=== PATIENT | female | born 1990 | race Caucasian/White ===

== ENCOUNTER 2021-01-31 12:20 | Outpatient (CLI) | payer OTHER, SELFPAY ==
[2021-01-31 13:14] LABS: Beta HCG Quantitative < 2.39 mIU/ML
== END 2021-01-31 12:21 | disposition home or self-care (01) ==
PROVIDERS: PCP Hospitalist; Visit Provider Obstetrics & Gynecology
DX: N91.2 Amenorrhea, unspecified (principal)
CPT/HCPCS: 36415; 84702

== ENCOUNTER 2021-05-25 17:14 | Observation (INO) | payer OTHER, SELFPAY ==
[2021-05-25 17:47] VITALS: BP 99/65; PULSE 87
[2021-05-25 17:57] VITALS: BMI 29.1
--- NOTE | 2021-05-25 17:57 | OBADM ---
This patient, Charissa Pulido, admitted to the OB room OB Post 117 for observation. Patient/family oriented to hospital policies and general routines including ID bracelet, bed and alarms, visiting hours, pain management, procedures, bathroom and other care routines, personal items, smoking policy, room service/diet, and visiting hours. Patient/Family are encouraged to report perceived risks to care and to ask questions if they do not understand what they are told or what they should do.
[2021-05-25 18:00] VITALS: BP 101/64; PULSE 82
[2021-05-25 18:00] LABS: Add Urine Microscopic? NO; Appearance Urine Clear (Clear); Bilirubin Urine Negative (Negative); Blood Urine Negative (Negative); Color Urine Straw (Yellow); Glucose Urine UA Negative (Negative); Ketones Urine Negative (Negative); Leukocyte Esterase Ur Negative LEU/UL (Negative); Nitrate Urine Negative (Negative); Protein Urine Negative (Negative); Specific Grav Ur 1.008 (1.001-1.035); Urobilinogen Urine Negative mg/dL (<2.0)
--- NOTE | 2021-05-27 13:29 | PM.OBTRLD ---
OB - Triage/Final Diagnosis Visit Information Date of evaluation: 05/25/21 Reason for evaluation: threatened labor Comments/Additional reasons for admission: I have assessed the risk for this patient, Charissa Pulido, and determined that she would benefit from observation care. Evaluation Laboratory results: Laboratory Tests 05/25/21 17:48 Urine Color Straw Urine Appearance Clear Urine pH 6.0 Ur Specific [place] 1.008 Urine Protein Negative Urine Glucose (UA) Negative Urine Ketones Negative Ur Blood (Man) Negative Urine Nitrate Negative Urine Bilirubin Negative Urine Urobilinogen Negative Leukocyte Esterase Rfl Negative
== END 2021-05-25 18:35 | disposition home or self-care (01) ==
PROVIDERS: Admitting Provider Obstetrics & Gynecology; PCP Hospitalist; Visit Provider Student in an Organized Health Care Education/Training Program
DX: O47.02 False labor before 37 completed weeks of gestation, second trimester (principal); Z3A.19 19 weeks gestation of pregnancy
CPT/HCPCS: 81003; G0378; G0379

== ENCOUNTER 2021-07-29 10:46 | Outpatient (CLI) | payer OTHER, SELFPAY ==
--- NOTE | 2021-07-29 | ECG_ITS ---
Measurements Intervals [place] Rate: 75 P: 30 HI: 161 QRS: 12 QRSD: 94 T: 8 QT: 364 QTc: 409 Interpretive Statements SINUS RHYTHM LOW QRS VOLTAGE IN PRECORDIAL LEADS BORDERLINE ECG Electronically Signed On 07-29-2021 11:23:04 CDT by Charli Berry D.O.
== END 2021-07-29 10:47 | disposition home or self-care (01) ==
LOC: ANHCARD 10:48
PROVIDERS: PCP Hospitalist; Visit Provider Obstetrics & Gynecology
DX: R55 Syncope and collapse (principal)
CPT/HCPCS: 93005

== ENCOUNTER 2021-10-12 14:22 | Inpatient (IN) | payer OTHER, SELFPAY ==
[2021-10-12] VITALS (48 sets, daily range): BP systolic 113–151; BP diastolic 58–94; PULSE 96–146; RESP 18; TEMP 36.6; O2SAT 68–100; BMI 35.9
[2021-10-12 15:06] LABS: Basophils Absolute Auto 0.1 K/mm3 (0.0-0.1); Basophils Percent Auto 0.5 % (0.2-1.2); Eosinophils Absolute Auto 0.1 K/mm3 (0-0.3); Eosinophils Percent Auto 0.4 % (0-4.4); Hematocrit 39.8 % (37.0-47.0); Hemoglobin 13.4 g/dL (12.0-15.0); Immature Granulocyte Percent A 4.5 % (0-0.5); Lymphocytes Absolute Auto 2.31 K/mm3 (0.9-3.2); Lymphocytes Percent Auto 17.3 % (18.3-44.2); Mean Corpuscular HGB Conc 33.7 g/dl (32-36); Mean Corpuscular Hemoglobin 29.9 pg (26-34); Mean Corpuscular Volume 88.8 fl (80-100); Mean Platelet Volume 10.4 fl (7.4-10.4); Monocytes Percent Auto 7.4 % (2.6-8.5); Neutrophils Absolute Auto 9.3 K/mm3 (1.3-6.7); Neutrophils Percent Auto 69.9 % (45.5-73.1); Platelet Count Result 229 k/mm3 (150-375); Red Blood Count 4.48 M/mm3 (4.2-5.4); Red Cell Distribution Width 14.1 % (11.5-14.5); White Blood Count 13.4 K/mm3 (4.5-10.0)
--- NOTE | 2021-10-12 15:31 | WPDANESEPP ---
Anes - Eval Pre Procedure Procedure: Labor Epidural Date/Time: 10/12/21 15:31 Surgeon: Brian Preop Diagnosis: Labor Pain Pre Op Diagnosis: Leaking-SROM Patient Data Age: 30 Gender: F Height: Weight: Last Vital Signs Pulse 115 H 10/12/21 15:28 BP 120/71 10/12/21 15:28 Pulse Ox 100 10/12/21 15:28 Allergies Allergy/AdvReac Type Severity Reaction Status Date / Time Penicillins Allergy Unknown throat Verified 09/25/21 14:37 swells clindamycin AdvReac Unknown C-diff Verified 09/25/21 14:37 but I don't want to take it again Home Medications Medication Instructions Recorded Confirmed Type enoxaparin 100 mg/mL subcutaneous 100 mg subcut DAILY 05/25/21 05/25/21 History syringe (Lovenox) sertraline 50 mg tablet 50 mg PO DAILY 05/25/21 05/25/21 History prenat.vits,gómez,tun-jqvu-audze 1 tablet PO HS 09/25/21 09/25/21 History Laboratory Tests 10/12/21 10/12/21 14:58 14:58 WBC 13.4 K/mm3 H K/mm3 (4.5-10.0) RBC 4.48 M/mm3 M/mm3 (4.2-5.4) Hgb 13.4 g/dL g/dL (12.0-15.0) Hct 39.8 % % (37.0-47.0) MCV 88.8 fl fl (80-100) MCH 29.9 pg pg (26-34) MCHC 33.7 g/dl g/dl (32-36) RDW 14.1 % % (11.5-14.5) Plt Count 229 k/mm3 k/mm3 (150-375) MPV 10.4 fl fl (7.4-10.4) Immature Gran % (Auto) 4.5 % H % (0-0.5) Neut % (Auto) 69.9 % % (45.5-73.1) Lymph % (Auto) 17.3 % L % (18.3-44.2) [place] % (Auto) 7.4 % % (2.6-8.5) Eos % (Auto) 0.4 % % (0-4.4) Baso % (Auto) 0.5 % % (0.2-1.2) Lymph # (Auto) 2.31 K/mm3 K/mm3 (0.9-3.2) [place] # (Auto) 1.0 K/mm3 H K/mm3 (0.1-0.6) Eos # (Auto) 0.1 K/mm3 K/mm3 (0-0.3) Baso # (Auto) 0.1 K/mm3 K/mm3 (0.0-0.1) Abs Immat Gran (auto) 0.60 K/mm3 H K/mm3 (0.00-0.031) Absolute Neuts (auto) 9.3 K/mm3 H K/mm3 (1.3-6.7) Absolute Nucleated RBC 0.0 K/mm3 K/mm3 (0.0-0.012) Nucleated RBC % 0.0 % % (0.0-0.2) RPR Pending : gestational age (DANY 10/17/21, ) Patient hx anesthesia problems: none Family hx anesthesia problems: none Results Review: All pre-operative results and documents have been reviewed as part of the pre-operative evaluation. [facility] Past Medical History Medical History (Updated 10/12/21 @ 15:32 by Estella Boucher CRNA) Anti-phospholipid syndrome Anxiety Family History Family History Grandparent Heart disease Grandparent Heart disease Social History Social History Substance use: never Spiritual care concerns: No Exam Day of Procedure 10/12/21 15:31 Patient weight: normal Heart: regular rate and rhythm Lungs: normal air movement Airway: Mallampati scale class II Neurological: alert and oriented
--- NOTE | 2021-10-12 15:33 | LDADM ---
This patient, Charissa Pulido, was admitted to Labor/Delivery/Recovery 108 on 10/12/21 at 14:22. Plans for labor, pain management and were discussed with patient. Patient/family oriented to hospital policies and general routines including ID bracelet, bed and alarms, visiting hours, pain management, procedures, bathroom and other care routines, personal items, smoking policy, room service/diet and guest tray routines, infant security routines, and visiting hours. Patient/Family are encouraged to report perceived risks to care and to ask questions if they do not understand what they are told or what they should do. See OBIX for further documentation.
[2021-10-12] MEDS: LACTATED RINGERS 1,000 ML 125 ML IV CONT (16:00)
--- NOTE | 2021-10-12 16:14 | PM.IMHP ---
H&P: HPI History of Present Illness Date/Time: 10/12/21 16:14 Chief Complaint: labor at term Narrative: this is a 30-year-old 3 para 2 whose last menstrual period unknown, EDC is 10/17/2021, confirmed by 8 week ultrasound who presents at 39 and half weeks gestation active labor. She has a history of antiphospholipid antibody syndrome and was on Lovenox until recently when she began heparin b.i.d.. She has not taken her heparin for more than 12hours. She also takes Zoloft 50mg for anxiety and is vaccinated for COVID. She is negative for group B strep. She spontaneously ruptured just prior to admission [facility] Past Medical History Medical History Anti-phospholipid syndrome Anxiety Family History Family History Grandparent Heart disease Grandparent Heart disease Social History Social History Smoking status: Never smoker Substance use: never Spiritual care concerns: No Meds Home Medications and Allergies Home Medications Medication Instructions Recorded Confirmed Type enoxaparin 100 mg/mL subcutaneous 100 mg subcut DAILY 05/25/21 10/12/21 History syringe (Lovenox) sertraline 50 mg tablet 50 mg PO DAILY 05/25/21 10/12/21 History prenat.vits,gómez,mvy-zafw-mjuhc 1 tablet PO HS 09/25/21 09/25/21 History Allergies Allergy/AdvReac Type Severity Reaction Status Date / Time Penicillins Allergy Unknown throat Verified 09/25/21 14:37 swells clindamycin AdvReac Unknown C-diff Verified 09/25/21 14:37 but I don't want to take it again Vital Signs Vital Signs - 24 hr 10/12/21 14:46 10/12/21 15:01 10/12/21 15:04 Pulse Rate 104 H 115 H Blood Pressure 123/84 118/76 Pulse Oximetry 100 Oxygen Delivery 10/12/21 15:06 10/12/21 15:10 10/12/21 15:11 Pulse Rate Blood Pressure Pulse Oximetry 100 68 L 85 L Oxygen Delivery 10/12/21 15:13 10/12/21 15:15 10/12/21 15:17 Pulse Rate 111 H Blood Pressure 124/69 Pulse Oximetry 100 100 Oxygen Delivery 10/12/21 15:18 10/12/21 15:21 10/12/21 15:22 Pulse Rate 105 H 112 H Blood Pressure 131/84 131/82 Pulse Oximetry 100 Oxygen Delivery 10/12/21 15:23 10/12/21 15:24 10/12/21 15:26 Pulse Rate 123 H 117 H Blood Pressure 119/74 121/58 L Pulse Oximetry 100 Oxygen Delivery 10/12/21 15:28 10/12/21 15:30 10/12/21 15:33 Pulse Rate 115 H 111 H Blood Pressure 120/71 123/74 Pulse Oximetry 100 100 Oxygen Delivery 10/12/21 15:35 10/12/21 15:38 10/12/21 15:40 Pulse Rate 111 H 115 H Blood Pressure 120/72 113/79 Pulse Oximetry 100 Oxygen Delivery 10/12/21 15:43 10/12/21 15:45 10/12/21 15:50 Pulse Rate 106 H 111 H Blood Pressure 129/75 135/77 Pulse Oximetry 100 Oxygen Delivery 10/12/21 15:55 10/12/21 16:00 10/12/21 16:05 Pulse Rate 119 H 121 H 122 H Blood Pressure 127/79 131/82 125/79 Pulse Oximetry Oxygen Delivery 10/12/21 16:10 10/12/21 15:32 Pulse Rate 119 H Blood Pressure 123/79 Pulse Oximetry Oxygen Delivery Room Air Exam Const: General: cooperative and healthy appearing HENMT: Head: normal to inspection Eyes: General: appearance normal, both eyes and all related structures Cardio: Heart sounds: S1 normal heart sound present and S2 normal heart sound present GI: Inspection: normal to inspection : Speculum Exam - Cervix: normal appearance of the cervix ( cervix rim with clear fluid. FHTs reassuring) H&P: Results Labs Labs: Short CBC 10/12/21 Range/Units 14:58 WBC 13.4 H (4.5-10.0) K/mm3 Hgb 13.4 (12.0-15.0) g/dL Hct 39.8 (37.0-47.0) % Plt Count 229 (150-375) k/mm3 Assessment and Plan Assessment and plan (1) Term : Code(s): Z34.90 - Encounter for supervision of normal pregnanc
[2021-10-12] MEDS: OXYTOCIN 30 UNITS/NS 500 ML 30 UNITS/500 ML BAG IV CONT (17:23)
--- NOTE | 2021-10-12 18:54 | PM.OBPRVD ---
OB - Delivery Note Procedure Delivery date: 10/12/21 Induction method: None Delivery augmentation: Pitocin Delivery monitor: External FHT Route of delivery: Episiotomy description: None Laceration Description: None Quantitative Blood Loss (ml): 159 Anesthesia type: Epidural Disposition: Floor [place] Baby Date of : 10/12/21 Weeks of gestation at delivery: 39 presentation: vertex position: Right Occiput Anterior Placenta delivery description: Spontaneous Cord Vessel Description: 3 Vessels
[2021-10-12] MEDS: OXYTOCIN 30 UNITS/NS 500 ML 30 UNITS/500 ML BAG 125 UNITS IV CONT (19:20)
[2021-10-12] MEDS: ACETAMINOPHEN 500 MG TABLET 1000 MG PO (19:41)
[2021-10-12] MEDS: BENZOCAINE 20% AER SPR (*SP) 56 GM CAN 1 SPRAY TOPICAL (21:06)
[2021-10-12] MEDS: ONDANSETRON INJ 4 MG/2 ML VIAL IV PUSH (21:06)
[2021-10-12] MEDS: WITCH HAZEL 40 PADS 1 PAD TOPICAL (21:12)
--- NOTE | 2021-10-12 21:19 | OBPPTRN ---
Patient transferred to post room #288 via W/C. Support person present. Oriented to unit, room, information board, rooming in, admission packet and security measures. Patient verbalizes understanding.
[2021-10-12] MEDS: METHYLERGONOVINE MALEATE 0.2 MG TABLET PO (22:10)
[2021-10-13] VITALS: BP 118/79; PULSE 85; RESP 18; TEMP 36.5
[2021-10-13] MEDS: ACETAMINOPHEN 325 MG TABLET 650 MG PO ×3 (02:01→16:55)
[2021-10-13 03:50] VITALS: BP 119/79; PULSE 91; RESP 18; TEMP 36.6
--- NOTE | 2021-10-13 04:00 | PC.NURSE ---
On 10/12/21, at 2155, pt called out and said she had felt a gush of blood come out. This RN and charge nurse; Gricelda Fink RN, went and assessed the patient; taking vitals and weighing her pads which came to 325 grams. Despite the patient's fundus being firm at 1 below the umbilicus, she still continued to gush blood with fundal massage. Charge nurse called the patient's OB, Dr. Nilo Anderson and updated him on her condition. Provider ordered Methergine 0.2mg PO x1 which was given at 2210. At 2223- fundus was firm and deviated to the right, I got pt up to the bathroom to empty her bladder. Patient was able to void and pad was weighed and changed, pad weighed 58 grams. 2300- pad weighed 57 grams. 2330- pad was not changed and small bleeding was noted at this time. 0000- pad weighed 40 grams. 0030- patient requested to shower and get cleaned up. 0100- New mert pad applied after shower. 0200- fundus firm at 1 below umbilicus, no trickle of blood with fundal massage, peripad with minimal bleeding. 0340- pt up to the bathroom, small flow noted on the peripad, and new pad applied. One quarter sized clot in the toilet after voiding.
[2021-10-13 05:42] LABS: Hematocrit 33.8 % (37.0-47.0); Hemoglobin 11.2 g/dL (12.0-15.0)
--- NOTE | 2021-10-13 07:12 | P.PNOB_ITS ---
OB - PN: Subj Subjective Date/time seen: 10/13/21 07:12 Patient comments: no complaints and pain well controlled baby status: doing well OB - PN: Obj Data Labs CBC & Chem 7: 10/13/21 05:14 Labs: Laboratory Results - last 24 hr 10/12/21 10/12/21 10/13/21 14:58 14:58 05:14 WBC 13.4 H RBC 4.48 Hgb 13.4 11.2 L Hct 39.8 33.8 L MCV 88.8 MCH 29.9 MCHC 33.7 RDW 14.1 Plt Count 229 MPV 10.4 Immature Gran % (Auto) 4.5 H Neut % (Auto) 69.9 Lymph % (Auto) 17.3 L [place] % (Auto) 7.4 Eos % (Auto) 0.4 Baso % (Auto) 0.5 Lymph # (Auto) 2.31 [place] # (Auto) 1.0 H Eos # (Auto) 0.1 Baso # (Auto) 0.1 Abs Immat Gran (auto) 0.60 H Absolute Neuts (auto) 9.3 H Absolute Nucleated RBC 0.0 Nucleated RBC % 0.0 Blood Type B Positive Antibody Screen Negative OB - PN A/P Assessment and Plan (1) Anti-phospholipid antibody syndrome: Code(s): D68.61 - Antiphospholipid syndrome Status: Acute (2) Term : Code(s): Z34.90 - Encounter for supervision of normal , unspecified, unspecified trimester Status: Acute Plan day: 1 Plan: routine care Time Spent With Patient Time: Total time spent is greater than 50% in coordination of care (as documented) at patient's floor/unit and/or counseling patient: Time with patient: less than 15 minutes
[2021-10-13 08:00] VITALS: BP 113/75; PULSE 96; RESP 18; TEMP 36.8; O2SAT 100
[2021-10-13] MEDS: DOCUSATE SODIUM 100 MG CAPSULE PO ×2 (08:10→16:56)
[2021-10-13] MEDS: MULTIVIT/MIN/PREN/FOL AC/IRON TABLET 1 TAB PO (08:10)
[2021-10-13] MEDS: ENOXAPARIN 100 MG/ML SYRINGE SUB-Q (09:51)
--- NOTE | 2021-10-13 11:45 | PC.NURSE ---
[id number] Introductions were made, then consulted with patient to assess needs related to . Mother led the conversation with her?plans to feed?her infant and the?experience so far and describes the feeding as a pulling when infant is nursing. Dad describes the jaw movement as jacking it up and the rocking motion RN describes agrees with what dad notices. Mother denies and discomfort with . Mother is feeding appropriately for growth of infant and understands stimulating infant to eat if needed. has had appropriate feedings in the last 24 hours meets the outcomes for weight, output and jaundice at this time. Mother states she is confident to continue effectively her at home. Resources provided for inpatient and outpatient services using a resource guide and mom/baby guide. Mother voiced understanding of information and will call if there is a request for assistance. Reported to primary RN.
[2021-10-13 12:01] LABS: Rapid Plasma Reagin Non-Reactive (NonReactive)
[2021-10-13 13:40] VITALS: BP 104/64; PULSE 94; RESP 18; TEMP 36.2; O2SAT 99
--- NOTE | 2021-10-13 15:30 | PC.NURSE ---
Pt used call light at 15:30 and stated she passed a clot in bathroom about an hour ago. When i entered room to assess she stated she has already flushed clot down the toilet. I told pt to notify RN as soon as it happens and to let us see clot>
--- NOTE | 2021-10-13 15:31 | PC.NURSE ---
[id number] Consulted with patient to assess needs related to . Mother led conversation with her experience with feeding baby so far. Mother works well with her infant with encouragement and has infant latched to the right breast using a modified football position. Detached due to mother stating it was a little pinchy . Nipple was slightly misshaped. Reviewed working with , breast, nipples and how to protect the nipples with an optimal deep latch, good positioning, and good hand washing. Encouraged understanding the benefits of skin to skin, responding to feeding cues, frequencies of feeding 8-12 times in 24 hours (approximately 2-3 hours), duration of feedings, milk production, intake/output feeding sheet and signs of adequate intake encouraging swallowing at the breast. Reviewed positioning and alignment, supporting breast, off-centered (asymmetrical latch) and leading with the chin with big open wide gape. latched optimally to the left breast in football position. Education given to mother of how to visualize and hear her baby's good suck/swallow ratios. was able to maintain latch without discomfort to mother. Nipple care reviewed with optimal latch and good positioning. Resources used to facilitate learning were used from the visual handout and mom/baby guide. Mother voiced understanding of the education shared, calling for assistance if the infant does not latch or if there is discomfort with . Reported to the primary RN.
[2021-10-13 17:05] VITALS: BP 101/72; PULSE 108; RESP 16; TEMP 36.1; O2SAT 99
[2021-10-13] MEDS: LANOLIN (LANSINOH) 7.5 GM CREAM 1 APPLIC TOPICAL (17:16)
--- NOTE | 2021-10-13 17:45 | PC.NURSE ---
Pt used call light to Let RN know she passed a clot. Myself assessed the clot that was on the pad, it looked to be the size of a quarter. I told pt to continue notifying the nurse when she passes clots. Pt understands at this time.
[2021-10-13 19:30] VITALS: BP 108/70; PULSE 100; RESP 18; TEMP 36.6
[2021-10-13] MEDS: IBUPROFEN 600 MG TABLET PO (23:07)
[2021-10-14] MEDS: ACETAMINOPHEN 325 MG TABLET 650 MG PO (04:53)
--- NOTE | 2021-10-14 06:48 | P.DS_ITS ---
DS: Admitting Diagnosis Discharge Date 10/14/2021 Admitting Diagnosis term / anti phospholipid antibody DS: Discharge Diagnosis Discharge Diagnosis (1) Anti-phospholipid antibody syndrome: Code(s): D68.61 - Antiphospholipid syndrome Status: Acute (2) Term : Code(s): Z34.90 - Encounter for supervision of normal , unspecified, unspecified trimester Status: Acute DS: Summary Hospital Course Reason for hospitalization: active labor at term Hospital Course: this is a 30-year-old multiparous patient admitted at term in active labor. Her been complicated by antiphospholipid antibody which she had been Lovenox and then changed to heparin in the weeks prior to delivery. She u nderwent unremarkable spontaneous vaginal delivery. Her postop care was unremarkable she remained afebrile. She was up, voiding without difficulty, ambulating, generally without complaints. Time Spent with Patient Time attestation: Total time spent providing and/or coordinating discharge services: DS: Data Data Completed and Pending Labs on day of discharge: Labs from last 24 hours 10/12/21 14:58 RPR Non-reactive Discharge Plan Discharge Attending physician on discharge: Chuy Ritter Discharging Clinician: Chuy Ritter Patient Disposition: Home, Self-Care Activity: may shower, no straining and pelvic rest Diet: heart healthy Wound Care Instructions: follow printed instructions Patient Instructions: Antibiotic Form Stand Alone Forms: General Discharge Information Follow-up/Referrals: Chuy Ritter MD [Physician] - Discharge Medications: Continued sertraline 50 mg Tablet 50 mg PO DAILY enoxaparin [Lovenox] 100 mg/mL Syringe 100 mg SUBCUT DAILY #2 Tablet 1 tablet PO HS Date of admission: 10/12/21 14:22 Primary Care Provider: XiomaraParker Admitting Provider: Chuy Ritter Attending physician on admission: Chuy Ritter Condition: Stable
--- NOTE | 2021-10-14 06:51 | PM.OBPNVD ---
OB - PN: Subj Subjective Date/time seen: 10/14/21 06:51 Patient comments: no complaints and pain well controlled baby status: doing well OB - PN: Obj Data Labs CBC & Chem 7: 10/13/21 05:14 Labs: Laboratory Results - last 24 hr 10/12/21 14:58 RPR Non-reactive OB - PN A/P Assessment and Plan (1) Anti-phospholipid antibody syndrome: Code(s): D68.61 - Antiphospholipid syndrome Status: Acute (2) Term : Code(s): Z34.90 - Encounter for supervision of normal , unspecified, unspecified trimester Status: Acute Plan day: 2 Plan: routine care, discharge home and follow up 6 weeks (4) Time Spent With Patient Time: Total time spent is greater than 50% in coordination of care (as documented) at patient's floor/unit and/or counseling patient: Time with patient: less than 15 minutes
[2021-10-14 08:50] VITALS: BP 112/71; PULSE 95; RESP 16; TEMP 36.5; O2SAT 96
[2021-10-14] MEDS: DOCUSATE SODIUM 100 MG CAPSULE PO (10:08)
[2021-10-14] MEDS: IBUPROFEN 600 MG TABLET PO (10:08)
[2021-10-14] MEDS: MULTIVIT/MIN/PREN/FOL AC/IRON TABLET 1 TAB PO (10:08)
[2021-10-14 10:45] VITALS: PULSE 95; RESP 16; O2SAT 96
[2021-10-14] MEDS: ENOXAPARIN 100 MG/ML SYRINGE SUB-Q (11:00)
[2021-10-16 11:43] VITALS: BP 115/73; PULSE 92; RESP 20; TEMP 36.8; O2SAT 99
== END 2021-10-14 12:05 | disposition home or self-care (01) | DRG 806 ==
LOC: ANHLDR 14:44 → ANHOB2 21:46
PROVIDERS: Admitting Provider Obstetrics & Gynecology; PCP Hospitalist; Visit Provider Obstetrics & Gynecology
DX: O99.12 Other diseases of the blood and blood-forming organs and certain disorders involving the immune mechanism complicating childbirth (principal); D68.61 Antiphospholipid syndrome; Z37.0 Single live birth; O99.344 Other mental disorders complicating childbirth; F41.9 Anxiety disorder, unspecified; Z3A.39 39 weeks gestation of pregnancy
CPT/HCPCS: 36415; 85014; 85018; 85025; 86592; 86850; 86900; 86901; A9270; J1650; J2210; J2405; J2590; J2795; J7120

== ENCOUNTER 2021-11-07 12:16 | Outpatient (RCR) | payer OTHER, SELFPAY ==
--- NOTE | 2021-11-07 16:56 | PC.NURSE ---
In- 1216 Out- 1331 Reason for visit: latch issues History: G 3 P3 mother has a history of anti-phospholipid and anxiety. She takes Lovenox 100 mg daily and Sertraline 50 mg daily. History: Infant delivered vaginally 10/12/2021 at 39 weeks EGA and received PPV for 45 seconds, then CPAP for 3 minutes, then doing well. Mother's screens were negative and rubella immune. Observations: latched to mother's breast with his body dangling. RN encouraged bringing the in close to her body and a deeper more optimal latch was achieved. No clicking was heard. Reviewed deeper latch with big, open, wide gape, and bringing close to her body, then supporting great latch with a pillow or rolled up towel will help prevent her from losing the deep latch. weight: 3830g Lowest weight: 3615g Last weight: 9-4 or 9[address] Orozco's office last week. Pre-feed weight:4638g Post-feed weight: 4707g Plan of Care: Mother is going to continue to breastfeed practicing a deeper latch. Follow up plans: Mother has plans to follow up with her HCP and the ICP for her infant.
== END 2022-02-05 23:59 | disposition home or self-care (01) ==
LOC: ANHOBOP 12:16
PROVIDERS: PCP Hospitalist; Visit Provider Pediatrics
DX: Z39.1 Encounter for care and examination of lactating mother (principal)
CPT/HCPCS: 99213; G0463

== ENCOUNTER 2021-12-29 17:55 | Emergency (ER) | payer OTHER, SELFPAY ==
[2021-12-29 18:09] VITALS: BP 102/63; PULSE 135; RESP 16; TEMP 37.8; O2SAT 98
--- NOTE | 2021-12-29 18:52 | ED.URI ---
HPI - URI/Sore Throat General Chief Complaint: Upper Respiratory Infection Stated Complaint: fever chills aches diarrhea lightheaded Time Seen by Provider: 12/29/21 18:52 Source: patient and RN notes reviewed Mode of arrival: ambulatory Limitations: no limitations History of Present Illness HPI Narrative: 31-year-old female presented for complaint of body aches, hot and cold flashes, diarrhea and a fever 100.6 at home. She is taken Tylenol for symptoms. She is exclusively breast-feeding. Denies sick contacts MD elicited complaint: fever Related Data Home Medications Medication Instructions Recorded Confirmed enoxaparin 100 mg/mL subcutaneous 100 mg subcut DAILY 05/25/21 12/29/21 syringe (Lovenox) sertraline 50 mg tablet 50 mg PO DAILY 05/25/21 10/12/21 prenat.vits,gómez,qmf-zaty-netzo 1 tablet PO HS 09/25/21 09/25/21 Allergies Allergy/AdvReac Type Severity Reaction Status Date / Time Penicillins Allergy Unknown throat Verified 12/29/21 18:45 swells clindamycin AdvReac Unknown C-diff Verified 12/29/21 18:45 but I don't want to take it again Review of Systems Review of Systems: CONSTITUTIONAL: Endorses malaise, chills, sweats, fever EYES: Denies visual changes, redness, or discharge ENT: Denies rhinorrhea, congestion, sinus pain, otalgia, sore throat CARDIOVASCULAR: Denies chest pain, palpitations, edema RESPIRATORY: Denies dyspnea GASTROINTESTINAL: Denies abdominal pain, nausea, vomiting, diarrhea SKIN: Denies rash or itching MUSCULOSKELETAL: Endorses myalgia NEUROLOGIC: Denies headache [facility] Past Medical History Medical History Anti-phospholipid syndrome Anxiety Family History Family History Grandparent Heart disease Grandparent Heart disease Social History Social History Smoking status: Never smoker Substance use: never Spiritual care concerns: No Exam Narrative: GENERAL: Ill-appearing, nontoxic EYES: PERRLA, conjunctivae clear ENT: Mucous membranes moist. TMs pearly bejarano with dull light reflex bilaterally; no tragal tenderness. Oropharynx erythematous without lesions or exudate, no drooling, no hoarseness, no trismus, uvula midline. CHEST: Clear to auscultation, breath sounds equal. HEART: Regular rate and rhythm. No murmur heard. SKIN: Warm, dry, no rash. NEURO: Alert and oriented x3. PSYCH: Normal mood and affect Course Course Emergency Course: Patient is aware of diagnosis, understands and agrees to treatment plan. Anticipatory guidance given. Patient agrees to follow-up as directed and is aware of reasons to seek care at the emergency department. Portions of this record may have been created with voice recognition software Level of Care: Express Care Visit Vital Signs Vital signs: Vital Signs Temperature 100.0 F H 12/29/21 18:09 Pulse Rate 135 H 12/29/21 18:09 Respiratory Rate 16 12/29/21 18:09 Blood Pressure 102/63 12/29/21 18:09 Pulse Oximetry 98 12/29/21 18:09 Oxygen Delivery Room Air 12/29/21 18:09 Temperature 100.0 F H 12/29/21 18:09 Pulse Rate 135 H 12/29/21 18:09 Respiratory Rate 16 12/29/21 18:09 Blood Pressure 102/63 12/29/21 18:09 Pulse Oximetry 98 12/29/21 18:09 Oxygen Delivery Room Air 12/29/21 18:09 reviewed MDM - URI/Sore Throat MDM Narrative Medical decision making narrative: COVID, flu, strep negative. Results reviewed with patient. Advised retesting for COVID at home. Advised supportive measures for viral infection and signs/symptoms to go to the ER. Pt is appropriate for outpt treatment and f/u. Differential Diagnosis Differential diagnosis: Likely upper respiratory infection, sinusitis and viral infection Lab Data Labs: Lab Results 12/29/21 Range/Units Unknown POC SARS CoV-2 Ag Negative (N
== END 2021-12-29 19:10 | disposition home or self-care (01) ==
PROVIDERS: Emergency Provider Nurse Practitioner Family; PCP Hospitalist
DX: B34.9 Viral infection, unspecified (principal); Z20.822 Contact with and (suspected) exposure to COVID-19; F41.9 Anxiety disorder, unspecified; D68.61 Antiphospholipid syndrome
CPT/HCPCS: 87081; 87420; 87426; 87804; 87880; 99213; C9803; G0463

== ENCOUNTER 2022-11-28 15:11 | Emergency (ER) | payer OTHER, SELFPAY ==
[2022-11-28 15:20] VITALS: BP 111/63; PULSE 101; RESP 16; TEMP 36.3; O2SAT 98
--- NOTE | 2022-11-28 16:14 | ED.GENADULT ---
HPI - General Adult General Chief complaint: Upper Respiratory Infection Stated complaint: Sore Throat/Ear Pain Source: patient Mode of arrival: ambulatory Limitations: no limitations History of Present Illness HPI narrative: Patient presents for evaluation of sore throat for last 2 days. She also has pressure in her ears, and generalized body aches. No objective fever, nausea, vomiting, diarrhea, cough, shortness of breath. She has been taking tylenol for her symptoms. No recent sick contacts to her knowledge. She visualized white exudate in her posterior pharynx. She does not smoke. She is . She is anticoagulated with Lovenox. Related Data Home Medications Medication Instructions Recorded Confirmed enoxaparin 100 mg/mL subcutaneous 100 mg subcut DAILY 05/25/21 12/29/21 syringe (Lovenox) sertraline 50 mg tablet 50 mg PO DAILY 05/25/21 10/12/21 prenat.vits,gómez,xau-lohb-lwkix 1 tablet PO HS 09/25/21 09/25/21 Allergies Allergy/AdvReac Type Severity Reaction Status Date / Time Penicillins Allergy Unknown throat Verified 12/29/21 18:45 swells clindamycin AdvReac Unknown C-diff Verified 12/29/21 18:45 but I don't want to take it again Review of Systems Review of Systems: CONSTITUTIONAL: Denies fever, chills, or sweats. EYES: Denies visual changes, redness, or discharge. ENT: Reports bilateral ear pain and sore throat. CARDIOVASCULAR: Denies chest pain, palpitations, or edema. RESPIRATORY: Denies cough or dyspnea. GASTROINTESTINAL: Denies abdominal pain, nausea, vomiting, or diarrhea. GENITOURINARY: Denies dysuria or hematuria. SKIN: Denies rash or itching. MUSCULOSKELETAL: Reports generalized body aches NEUROLOGIC: Denies headache, numbness, dizziness, or weakness. PSYCHIATRIC: Denies anxiety or depression. [facility] Past Medical History Medical History Anti-phospholipid syndrome Anxiety Surgical History Surgical History No pertinent past surgical history Family History Family History Grandparent Heart disease Grandparent Heart disease Social History Social History Smoking status: Never smoker Substance use: never Living arrangements: with family Gender identity (if verbalized by the patient): Female Sexual Orientation (if Verbalized by the Patient): Straight or Heterosexual Spiritual care concerns: No Exam Narrative: GENERAL: Well-appearing, well-nourished, and in no acute distress. HEAD: Normocephalic, atraumatic. EYES: PERRLA and EOMI. ENT: Nares clear, no rhinorrhea or epistaxis. Mucous membranes moist. Bilateral tonsillar swelling with erythema and white exudate. Uvula is midline. Unable to visualize the right tympanic membrane secondary to cerumen. Left tympanic membrane is erythematous and bulging with middle ear fluid present NECK: Supple. No adenopathy or masses. No carotid bruits or JVD CHEST: Clear to auscultation. No respiratory distress. No wheezes rales or rhonchi HEART: Regular rate and rhythm. No murmur heard. Normal peripheral pulses. ABDOMEN: Soft, nontender, nondistended, normal active bowel sounds. EXTREMITIES: Normal range of motion. No edema. SKIN: Warm, dry, no rash. NEURO: No focal deficits. Alert and oriented x3. PSYCH: Normal mood and affect. Course Course Emergency Course: This is a 32-year-old female who presented for evaluation of sick symptoms. COVID, strep, influenza were negative. Opted to proceed with antibiotic therapy due to otitis media. Will discharge with cefdinir. There appears not to be a drug drug interaction with Lovenox. She should be safe to breast feed. Increase hydration. Follow primary provider. Go to the ER for worsening symptoms. Pt
== END 2022-11-28 16:20 | disposition home or self-care (01) ==
PROVIDERS: Emergency Provider Nurse Practitioner; PCP Hospitalist
DX: J02.9 Acute pharyngitis, unspecified (principal); H66.92 Otitis media, unspecified, left ear; Z20.822 Contact with and (suspected) exposure to COVID-19; F41.9 Anxiety disorder, unspecified; Z79.01 Long term (current) use of anticoagulants
CPT/HCPCS: 87081; 87426; 87804; 87880; 99213; C9803; G0463